=== PATIENT | female | born 1955 | race Caucasian/White ===

== ENCOUNTER 2023-03-16 14:55 | Outpatient (AMB) | payer MEDICARE, SELFPAY ==
[2023-03-16 14:59] VITALS: BP 132/70; PULSE 104; O2SAT 94; BMI 40.0
--- NOTE | 2023-03-16 14:59 | A.OFFVIS_ITS ---
Intake Vital Signs 03/16/23 14:59 Height 4 ft 11 in Weight 198 lb BMI 40.0 BP 132/70 Blood Pressure Location Lt brachial Position Sitting Pulse 104 H Pulse Source Pulse Oximeter Pulse Oximetry (%) 94 Oxygen Delivery Method Room Air Intake Visit Reasons: Fluid in L Lung Code And Test Clerk: Code And Test Clerk offered & declined Accompanied by: Self / Same As Patient Allergies carisoprodol [From Soma] Allergy (Severe, Verified 03/16/23 15:16) hives sulindac [From Clinoril] Allergy (Severe, Verified 03/16/23 15:16) Angioedema lisinopril Allergy (Severe, Uncoded 03/16/23 15:16) Angioedema Medication List - Last Reconciled 03/16/23 by Arcelia Lua LPN albuterol sulfate 90 mcg/actuation (ProAir HFA) 2 puffs inhalation Q4-6H PRN amlodipine 10 mg PO DAILY [id number] 160-9-4.8 mcg/actuation (Breztri Aerosphere) 2 inhalations inhalation BID diclofenac sodium 75 mg PO BID fluticasone propion-salmeterol 230-21 mcg/actuation 2 puffs inhalation BID gabapentin 300 mg PO .morning gabapentin 900 mg PO BEDTIME lorazepam 1 mg PO BEDTIME PRN sertraline 150 mg PO DAILY HPI Fluid in L Lung HPI Details Anita is a pleasant 67 year old female, current smoker with 56 pack year history, with underlying COPD, and asthma since childhood. She was referred progressively worsening dyspnea over the last few months and recent abnormal chest CT. Chest CT performed through [facility] lung cancer screening program and revealed small LLL pleural effusion with associated pleural thickening. Otherwise no concerning nodules. She reports wheezing with productive cough and yellow to whitish sputum. She was recently prescribed breztri for the past 6 weeks but has also continued her wixela. She reports checking her oxygen saturation and will occasionally decrease into the 70s with exertion. She also reports JENNIFER and compliant with CPAP therapy through [facility] sleep medicine. She reports sister with asthma. She denies any allergies. She denies any occupational exposures. [facility] Social History (Updated 03/16/23 @ 15:08 by Arcelia Lua LPN) Patient Tobacco Use Status: Current everyday Tobacco user Tobacco use type: Cigarette Cigarette Packs Per Day: 1 Years Smoked: 50 Smoked in Last 30 Days: Yes Review of Systems Const Denies chills, Denies excessive sweating, Denies fever(s), Denies headache(s) and Denies night sweats Eyes Denies dry eyes, Denies irritation and Denies itchy eyes ENT Reports Normal hearing present and Denies headache(s) Card Denies chest pain, Denies chest pain at rest, Denies chest pain with activity, Denies claudication, Denies orthopnea and Denies paroxysmal nocturnal dyspnea Resp Denies pain on inspiration, Denies pain with cough and Denies stridor Musc Denies myalgias Neuro Reports Normal hearing present and Denies headache(s) Endo Denies excessive sweating Wei/Lymph Denies lymphadenopathy Aller/Immun Denies itchy eyes and Denies seasonal rhinorrhea Physical Exam Vital Signs: Last Vital Signs Pulse 104 H 03/16/23 14:59 BP 132/70 03/16/23 14:59 Pulse Ox 94 03/16/23 14:59 Oxygen Delivery Method Room Air 03/16/23 14:59 BMI result Body Mass Index 40.0 Const General: cooperative, healthy appearing, comfortable, no acute distress, well developed and alert Nutritional Appearance: obese Orientation/consciousness: patient oriented x3 Limitations: no limitations HEENT Head: Yes normal to inspection, Yes normocephalic and Yes atraumatic Ears: hearing grossly normal bilaterally and external ears normal Eyes General: appearance normal, both eyes and all related structures Eyelids: Yes eyelids normal Sclerae: sclerae normal EOM: EOMs intact bilaterally Neck Neck: Yes normal visual inspection and Yes no lymphadenopathy Lymphatic: no lymphadenopathy noted Chest Chest palpation & inspection: normal inspection of the chest Resp Other: diminished lung sounds Effort & Inspection: normal respiratory effort, able to speak in complete sentences, no audible wheezes, no cough, no stridor, not tachypneic, no tripod positioning and no use of accessory muscles Cardio Jugular venous distension: no JVD Rate: regular rate Rhythm: regular rhythm Skin Other: warm, dry General skin exam: no rashes or lesions noted Neuro General: patient oriented x3 Cranial nerves: Yes Normal hearing present Cognition (Neuro): normal cognition Gait exam (Neuro): Normal gait present Extrem General: Yes normal to inspection, Yes capillary refill normal, Yes no clubbing, cyanosis or edema and Yes no pedal edema Psych Appearance: grossly normal and well kempt Speech and movement: Normal speech and movement present and Clear speech present Affect: normal affect Attitude: cooperative Thought process: Normal thought process present Thought content: Normal thought content present Insight: Good insight present (Psych) Judgement: Good judgement present (Psych) Office Procedures 6 Minute Walk Time:: 15:40 SPO2 % at rest: 94 Pulse at rest: 92 SPO2 % during excercise: 85 Pulse during excercise: 110 SPO2 % after excercise: 91 Pulse after excercise: 118 Distance in yards walked: 100 Gloria Score: 7 Performance Observations:: Patient walked on level ground with the assistance of a walker. After a short distance of approx 25 yards O2 saturation dropped to 85% pulse of 110. Stopped to rest, O2 applied at 1L via nasal cannula. After approx 1.5 minutes O2 saturation increased to 95% with pulse of 96. Finished the walk with O2 at 1L via nasal cannula maintaining O2 saturation of 91% or greater. Patient reports her legs get very tired and she gets short of breath with walking any distance. Patient would benefit from the use of supplemental O2. 92837 - 6 Minute Walk Assessment & Plan Assessment & Plan (1) COPD (chronic obstructive pulmonary disease): Code(s): J44.9 - Chronic obstructive pulmonary disease, unspecified (2) Pleural effusion: Code(s): J90 - Pleural effusion, not elsewhere classified Plan Anita's symptoms are likely related to underlying COPD. Will send for PFT to assess severity. Will send in azithromycin for bronchitic symptoms. Patient reports improvements with breztri however not financially feasible. Advised to continue Wixela and will add spiriva. 6MWT performed and patient does qualify for supplemental oxygen, however declines at this time. Discussed adverse effects of hypoxia. Reviewed chest CT report which revealed small left pleural effusion with associated pleural thickening. Will attempt to obtain images from [facility]. All questions were answered and patient is in agreement of plan. Will follow up to review response to inhaler and results. Orders: Orders AMB 6 minute walk 03/16/23 R06.09 - Other forms of dyspnea Medications: New tiotropium bromide (Spiriva with HandiHaler) puncture 1 cap using device; one dose = 2 inhalations 1 cap inhalation DAILY 30 caps 3RF Coding Level of Care Code New Pt Level 4 (00818) Diagnoses COPD (chronic obstructive pulmonary disease) J44.9 Pleural effusion J90 CPT Codes Coding ([id number])
--- NOTE | 2023-03-16 15:28 | MHC.OFFVIS ---
Intake Vital Signs 03/16/23 14:59 Height 4 ft 11 in Weight 198 lb BMI 40.0 BP 132/70 Blood Pressure Location Lt brachial Position Sitting Pulse 104 H Pulse Source Pulse Oximeter Pulse Oximetry (%) 94 Oxygen Delivery Method Room Air Intake Visit Reasons: Fluid in L Lung Allergies carisoprodol [From Soma] Allergy (Severe, Verified 03/16/23 15:16) hives sulindac [From Clinoril] Allergy (Severe, Verified 03/16/23 15:16) Angioedema lisinopril Allergy (Severe, Uncoded 03/16/23 15:16) Angioedema Medication List - Last Reconciled 03/16/23 by Arcelia Lua LPN albuterol sulfate 90 mcg/actuation (ProAir HFA) 2 puffs inhalation Q4-6H PRN amlodipine 10 mg PO DAILY [id number]-mqyidvxyva 160-9-4.8 mcg/actuation (Breztri Aerosphere) 2 inhalations inhalation BID diclofenac sodium 75 mg PO BID fluticasone propion-salmeterol 230-21 mcg/actuation 2 puffs inhalation BID gabapentin 300 mg PO .morning gabapentin 900 mg PO BEDTIME lorazepam 1 mg PO BEDTIME PRN sertraline 150 mg PO DAILY [facility] Social History (Updated 03/16/23 @ 15:08 by Arcelia Lua LPN) Patient Tobacco Use Status: Current everyday Tobacco user Tobacco use type: Cigarette Cigarette Packs Per Day: 1 Years Smoked: 50 Smoked in Last 30 Days: Yes Physical Exam Vital Signs: Last Vital Signs Pulse 104 H 03/16/23 14:59 BP 132/70 03/16/23 14:59 Pulse Ox 94 03/16/23 14:59 Oxygen Delivery Method Room Air 03/16/23 14:59 BMI result Body Mass Index 40.0 Office Procedures 6 Minute Walk Time:: 15:40 SPO2 % at rest: 94 Pulse at rest: 92 SPO2 % during excercise: 85 Pulse during excercise: 110 SPO2 % after excercise: 91 Pulse after excercise: 118 Distance in yards walked: 100 Gloria Score: 7 Performance Observations:: Patient walked on level ground with the assistance of a walker. After a short distance of approx 25 yards O2 saturation dropped to 85% pulse of 110. Stopped to rest, O2 applied at 1L via nasal cannula. After approx 1.5 minutes O2 saturation increased to 95% with pulse of 96. Finished the walk with O2 at 1L via nasal cannula maintaining O2 saturation of 91% or greater. Patient reports her legs get very tired and she gets short of breath with walking any distance. Patient would benefit from the use of supplemental O2. 79104 - 6 Minute Walk Assessment & Plan Assessment & Plan Orders: Orders AMB 6 minute walk Today R06.09 - Other forms of dyspnea Coding CPT Codes Coding ([id number])
[2023-03-16 16:02] VITALS: PULSE 92; O2SAT 94
== END 2023-03-16 16:05 | disposition home or self-care (01) ==
PROVIDERS: PCP Internal Medicine; Visit Provider Nurse Practitioner Family
DX: J44.9 Chronic obstructive pulmonary disease, unspecified (principal)
CPT/HCPCS: 94618; 99204

== ENCOUNTER → 2023-03-16 14:55 | Outpatient (BNVA) | payer MEDICARE, SELFPAY | PROVIDERS: PCP Internal Medicine; Visit Provider Nurse Practitioner Family | DX: J44.9 Chronic obstructive pulmonary disease, unspecified (principal); J90 Pleural effusion, not elsewhere classified | CPT/HCPCS: 94618; 99202 ==

== ENCOUNTER 2023-04-23 | Outpatient (REF) | payer MEDICARE, SELFPAY ==
--- NOTE | 2023-04-23 10:33 | PFT_ITS ---
Flows: FEV1: 73 % of predicted at 1.37 L FVC: 83 % of predicted at 1.97 L FEV1/FVC: 69 % Bronchodilator response: Absent Volumes: No lung volume measurements available secondary to a technical issue. Diffusion capacity: Moderately decreased. Impression: Moderate obstructive ventilatory defect with no bronchodilator response, spirometry suggests underlying restrictive ventilatory defect. No lung volume measurements available secondary to a technical issue. Decreased diffusion capacity suggests emphysema. MTDD
[2023-04-23 11:30] VITALS: PULSE 95; RESP 16; O2SAT 97
== END 2023-04-23 00:01 | disposition home or self-care (01) ==
LOC: HO.RESP
PROVIDERS: Visit Provider Nurse Practitioner Family
DX: J44.9 Chronic obstructive pulmonary disease, unspecified (principal)
CPT/HCPCS: 94010; 94640; 94727; 94729

== ENCOUNTER → 2023-04-23 10:33 | Outpatient (BNV) | payer MEDICARE, SELFPAY | PROVIDERS: Visit Provider Internal Medicine Pulmonary Disease | DX: J44.9 Chronic obstructive pulmonary disease, unspecified (principal) | CPT/HCPCS: 94060; 94729 ==

== ENCOUNTER 2023-04-26 09:52 | Outpatient (AMB) | payer MEDICARE, SELFPAY ==
--- NOTE | 2023-04-26 09:54 | A.OFFVIS_ITS ---
Intake Vital Signs 04/26/23 09:55 Height 4 ft 11 in BP 136/72 Blood Pressure Location Rt brachial Position Sitting Pulse 94 Pulse Source Pulse Oximeter Pulse Oximetry (%) 93 Oxygen Delivery Method Room Air Intake Visit Reasons: PFT results Medical Affairs Manager Required: No On Site Services Specialist: On Site Services Specialist offered & declined Accompanied by: Self / Same As Patient Allergies carisoprodol [From Soma] Allergy (Severe, Verified 04/26/23 10:00) hives sulindac [From Clinoril] Allergy (Severe, Verified 04/26/23 10:00) Angioedema lisinopril Allergy (Severe, Uncoded 04/26/23 10:00) Angioedema Medication List - Last Reconciled 04/26/23 by Arcelia Lua LPN albuterol sulfate 90 mcg/actuation (ProAir HFA) 2 puffs inhalation Q4-6H PRN amlodipine 10 mg PO DAILY diclofenac sodium 75 mg PO BID fluticasone propion-salmeterol 230-21 mcg/actuation 2 puffs inhalation BID gabapentin 300 mg PO .morning gabapentin 900 mg PO BEDTIME lorazepam 1 mg PO BEDTIME PRN losartan 25 mg PO DAILY sertraline 150 mg PO DAILY tiotropium bromide (Spiriva with HandiHaler) 1 cap inhalation DAILY HPI PFT results HPI Details Anita is a pleasant 67 year old female, current smoker with 56 pack year history, with underlying COPD, and asthma since childhood. She was referred progressively worsening dyspnea over the last few months and recent abnormal chest CT. Chest CT performed through [facility] lung cancer screening program and revealed small LLL pleural effusion with associated pleural thickening. Otherwise no concerning nodules. She was sent for CXR to assess for resolution but stable findings. Denies any cardiac evaluation or prior echo. At the last visit, she was started on spiriva and wixela and given a zpak for productive cough with yellow sputum. She reports significant improvements in cough, now with clear sputum. She continues to reports wheezing and dyspnea, requiring albuterol frequently. At this time denies BLE or orthopnea. [facility] Social History (Updated 04/26/23 @ 10:03 by Arcelia Lua LPN) Patient Tobacco Use Status: Current everyday Tobacco user Tobacco use type: Cigarette Cigarette Packs Per Day: 1 Years Smoked: 50 Review of Systems Const Denies chills, Denies excessive sweating, Denies fever(s), Denies headache(s) and Denies night sweats Eyes Denies dry eyes, Denies irritation and Denies itchy eyes ENT Reports Normal hearing present and Denies headache(s) Card Denies chest pain, Denies chest pain at rest, Denies chest pain with activity, Denies claudication, Denies orthopnea and Denies paroxysmal nocturnal dyspnea Resp Denies pain on inspiration, Denies pain with cough and Denies stridor Musc Denies myalgias Neuro Reports Normal hearing present and Denies headache(s) Endo Denies excessive sweating Wei/Lymph Denies lymphadenopathy Aller/Immun Denies itchy eyes and Denies seasonal rhinorrhea Physical Exam Vital Signs: Last Vital Signs Pulse 94 04/26/23 09:55 BP 136/72 04/26/23 09:55 Pulse Ox 93 04/26/23 09:55 Oxygen Delivery Method Room Air 04/26/23 09:55 Const General: cooperative, healthy appearing, comfortable, no acute distress, well developed and alert Nutritional Appearance: obese Orientation/consciousness: patient oriented x3 Limitations: no limitations HEENT Head: Yes normal to inspection, Yes normocephalic and Yes atraumatic Ears: hearing grossly normal bilaterally and external ears normal Eyes General: appearance normal, both eyes and all related structures Eyelids: Yes eyelids normal Sclerae: sclerae normal EOM: EOMs intact bilaterally Neck Neck: Yes normal visual inspection and Yes no lymphadenopathy Lymphatic: no lymphadenopathy noted Chest Chest palpation & inspection: normal inspection of the chest Resp Other: diminished lung sounds Effort & Inspection: normal respiratory effort, able to speak in complete sentences, no audible wheezes, no cough, no stridor, not tachypneic, no tripod positioning and no use of accessory muscles Cardio Jugular venous distension: no JVD Rate: regular rate Rhythm: regular rhythm Skin Other: warm, dry General skin exam: no rashes or lesions noted Neuro General: patient oriented x3 Cranial nerves: Yes Normal hearing present Cognition (Neuro): normal cognition Gait exam (Neuro): Normal gait present Extrem General: Yes normal to inspection, Yes capillary refill normal, Yes no clubbing, cyanosis or edema and Yes no pedal edema Psych Appearance: grossly normal and well kempt Speech and movement: Normal speech and movement present and Clear speech present Affect: normal affect Attitude: cooperative Thought process: Normal thought process present Thought content: Normal thought content present Insight: Good insight present (Psych) Judgement: Good judgement present (Psych) Office Procedures Nebulizer Treatment Nebulizer Treatment 95030-Kiaangjke/MDI RX initial, or Nebulizer Subsequent Treatment Office Meds ipratropium 0.5 mg-albuterol 3 mg (2.5 mg base)/3 mL nebulization soln Performing Provider: Irene Palafox NP Performing Location: [facility] Administered by: Arcelia Lua LPN on 04/26/23 11:00 Dose Route Admin Location Dispensed Lot Number Expiration Date NDC Academic Support Coordinator 3 mL inhalation 3 mL [id number] 11/20/24 77384-349-64 [employer] Assessment & Plan Assessment & Plan (1) COPD (chronic obstructive pulmonary disease): Code(s): J44.9 - Chronic obstructive pulmonary disease, unspecified (2) Pleural effusion: Code(s): J90 - Pleural effusion, not elsewhere classified (3) AGUILAR (dyspnea on exertion): Code(s): R06.09 - Other forms of dyspnea Plan Anita reports improvements in cough after zpak however continues to use albuterol frequently due to dyspnea and wheezing. Duoneb given in office and patient reported symptomatic improvement. Nebulizer for home use given in office today. On exam patient with faint inspiratory bibasilar crackles. Will send for echo to assess for cardiac contribution. May trial on lasix if dyspnea worsens and reports associated orthopnea or BLE. At the last visit, 6MWT performed and patient does qualify for supplemental oxygen, however she continues to decline. Prior CT chest revealed pleural effusion and minimal change on CXR. Will discuss reevaluation with imaging after echo. We also discussed pulmonary rehab which patient was interested in, but would like to hold off on a referral at this time . All questions were answered and patient is in agreement of plan. Will follow up to review results or sooner if needed. Orders: Orders AMB Nebulizer Treatment 04/26/23 J44.9 - Chronic obstructive pulmonary disease, unspecified CA echo transthoracic complete Today J90 - Pleural effusion, not elsewhere classified, R06.09 - Other forms of dyspnea Medications: New ipratropium-albuterol 0.5 mg-3 mg(2.5 mg base)/3 mL 3 mL inhalation BID PRN 180 mL 2RF wheezing Coding Level of Care Code Est Pt Level 4 (16953) Diagnoses COPD (chronic obstructive pulmonary disease) J44.9 Pleural effusion J90 AGUILAR (dyspnea on exertion) R06.09 CPT Codes Nebulizer Treatment - Nebulizer Treatment, initial or subsequent: 84966- Nebulizer/MDI RX initial, or Nebulizer Subsequent Treatment ([id number])
[2023-04-26 09:55] VITALS: BP 136/72; PULSE 94; O2SAT 93
== END 2023-04-26 10:44 | disposition home or self-care (01) ==
PROVIDERS: PCP Internal Medicine; Visit Provider Nurse Practitioner Family
DX: J44.9 Chronic obstructive pulmonary disease, unspecified (principal); J90 Pleural effusion, not elsewhere classified; R06.09 Other forms of dyspnea
CPT/HCPCS: 99214

== ENCOUNTER → 2023-04-26 09:52 | Outpatient (BNVA) | payer MEDICARE, SELFPAY | PROVIDERS: PCP Internal Medicine; Visit Provider Nurse Practitioner Family | DX: J44.9 Chronic obstructive pulmonary disease, unspecified (principal); J90 Pleural effusion, not elsewhere classified; R06.09 Other forms of dyspnea | CPT/HCPCS: 94640; 99212 ==

== ENCOUNTER → 2023-05-24 10:03 | Outpatient (REF) | payer MEDICARE, SELFPAY ==
--- NOTE | 2023-05-24 10:06 | CA_ITS ---
Transthoracic Echocardiogram Patient (Last, First, Middle): Anita Limon M Gender: Female Date of : 1955 Age: 67 Procedure Date: 05/24/2023 Procedure Type: Transthoracic Echocardiogram Location: OP Height: 152.4 cm Weight: 90.72 kg BSA: 1.87 m2 Heart Rate: bpm BP: 140 / 70 mmHg Kitchen Manager: ALISE Referring MD: Irene Palafox LEGAL ADVISER [employer] Pressing Machine Operator: Eduar Griffith MD Symptoms: R06.09 - Other forms of dyspnea Study Quality: Fair ECG Rhythm: Sinus Conclusions: - 1. Normal LV ejection fraction of 60 65% with mild LVH with impaired relaxation filling pattern 2. Mildly dilated left atrium 3. Cardiac valvular Dopplers within normal limits 4. Upper limits of normal ascending aortic size 5. No gross pericardial effusion Findings Left Ventricle Normal left ventricular size and systolic function. There is mildly increased left ventricular wall thickness. The visually estimated ejection fraction is between 60-65%. Spectral Doppler is indicative of an impaired relaxation filling pattern. E/E prime ratio is between 8 and 15 consistent with indeterminate filling pressures. Peak GLS is -15.5%, which is mildly reduced. Right Ventricle The right ventricle was not well visualized. Atria The left atrium is mildly dilated. There is lipomatous hypertrophy of the interatrial septum. There is no evidence of interatrial shunt. The right atrium was not well visualized. Aortic Valve The aortic valve was not well visualized. There is no aortic valve stenosis. There is no aortic valve regurgitation. Mitral Valve There is mild anterior and posterior mitral leaflet thickening. There is mild mitral annular calcification. There is trace mitral valve regurgitation. There is no mitral valve stenosis. Pulmonic Valve The pulmonic valve was not well visualized. Tricuspid Valve The tricuspid valve was not well visualized. Tricuspid regurgitation envelope is inadequate for calculation of right ventricular systolic pressure. Normal right atrial pressure. Great Vessels The pulmonary artery was not well visualized. Venous The inferior vena cava is normal in size and collapses greater than 50% with inspiration. Pericardium/Pleural There is no evidence of pericardial effusion. Prior Study Comparison No prior study available for comparison. Measurements 2D Linear Measurements IVSd: 1.28 0.6-0.9/0.6-1.0 cm LVIDd: 4.71 3.9-5.3/4.2-5.9 cm LVIDd Index: 2.52 2.4-3.2/2.2-3.1 cm/m2 LVIDs: 3.49 2.0-3.6 cm LVPWd: 1.15 0.7-1.1 cm LA Diam: 5.00 2.7-3.8/3.0-4.0 cm LAIDs Index: 2.67 1.5-2.3 cm/m2 LV Mass: 269.89 67-162/88-224 g LV Mass Index: 144.32 43-95/49-115 g/m2 LVOT Diam: 2.00 3.0+(-)1.3 cm 2D Systolic Function EF 4C: 61.70 >55% EF 2C: 65.00 >55% EF BiP: 62.90 >55% Mitral Valve MV Pk E: 1.12 MV PK A: 1.20 MV Decel Time: 217.00 E/A: 0.90 E'Lateral: 9.36 E'Medial: 7.40 E/E' Med: 15.10 E/E' Lat: 12.00 PHT: 63.00 MVA PHT: 3.49 Decel [place]: 5.15 Aortic Valve AoV Pk Mitchell: 1.67 AoV Mn Mitchell: 1.17 AoV VTI: 0.32 AoV Pk Grad: 11.00 Aov Mn Grad: 6.00 JONY Cont.VTI: 2.28 LVOT LVOT Pk Mitchell: 1.29 LVOT Mn Mitchell: 0.81 LVOT VTI: 0.24 LVOT Pk Grad: 7.00 LVOT Mn Grad: 3.00 LVOT Diam: 2.00 LVOT Area: 3.14 Diastolic Function MV Pk E: 1.12 MV Pk A: 1.20 E/A: 0.90 E'Medial: 7.40 E/E' Med: 15.10 E' Laterial: 9.36 E/E' Lat: 12.00 Right Ventricle TAPSE (mm): 20.30 TVS' Mitchell: 13.80 Tricuspid Valve RA Press: 3.00 Great Vessels Aorta Sinus of Valsalva: 3.02 2.0-3.[address] [place]: 2.96 1.7-3.4 cm Ao Asc: 3.50 2.1-3.4 cm Updated in Other Vendor System with Status of Final Eduar Griffith MD electronically signed on 05/25/2023 3:17:08 PM with status of Final
== END ==
LOC: HO.CARD 10:03
PROVIDERS: PCP Internal Medicine; Visit Provider Nurse Practitioner Family
DX: R06.09 Other forms of dyspnea (principal); J90 Pleural effusion, not elsewhere classified
CPT/HCPCS: 93306; 93356

== ENCOUNTER → 2023-05-24 10:06 | Outpatient (BNV) | payer MEDICARE, SELFPAY | PROVIDERS: PCP Internal Medicine; Visit Provider Internal Medicine Cardiovascular Disease | DX: R06.09 Other forms of dyspnea (principal) | CPT/HCPCS: 93306; 93356 ==

== ENCOUNTER 2023-06-15 10:41 | Outpatient (AMB) | payer MEDICARE, SELFPAY ==
--- NOTE | 2023-06-15 10:56 | MHC.OFFVIS ---
Vital Signs 06/15/23 11:01 Height 4 ft 11 in Weight 204 lb 8 oz BMI 41.3 BP 150/78 H Blood Pressure Location Rt brachial Position Sitting Pulse 104 H Pulse Source Pulse Oximeter Pulse Oximetry (%) 91 L Oxygen Delivery Method Room Air Intake Visit Reasons: Shortness of breath Allergies carisoprodol [From Soma] Allergy (Severe, Verified 06/15/23 11:04) hives sulindac [From Clinoril] Allergy (Severe, Verified 06/15/23 11:04) Angioedema lisinopril Allergy (Severe, Uncoded 06/15/23 11:04) Angioedema HPI HPI Shortness of breath: Details: Anita is a pleasant 67 year old female, current smoker with 56 pack year history, with underlying COPD, and asthma since childhood. At the last visit, she was started on spiriva and wixela, as well as duoneb BID. She was previously advised to use supplemental oxygen as 6MWT performed and patient required 1-2L. She is willing to start supplemental oxygen as she feels her symptoms are worsening. Over the last month she feels increased symptoms of wheezing and dyspnea, requiring albuterol frequently. She also reports chest congestion with productive cough and yellow sputum. Of note, since starting spiriva, she has noticed an increase in hoarseness. ON LICENSE OF [facility] Social History (Updated 06/15/23 @ 11:04 by Vannesa Suazo [facility]) Patient Tobacco Use Status: Current everyday Tobacco user Tobacco use type: Cigarette Cigarettes Per Day: 15 Years Smoked: 50 Review of Systems Const Denies chills, Denies excessive sweating, Denies fever(s) and Denies night sweats Eyes Denies dry eyes, Denies irritation and Denies itchy eyes ENT Reports Normal hearing present Card Denies chest pain, Denies chest pain at rest, Denies chest pain with activity, Denies claudication, Reports dyspnea on exertion, Denies orthopnea and Denies paroxysmal nocturnal dyspnea Resp Reports chest congestion, Reports cough, Denies pain on inspiration, Denies pain with cough, Reports dyspnea on exertion, Denies stridor and Reports wheezing Musc Denies myalgias Neuro Reports Normal hearing present Endo Denies excessive sweating Wei/Lymph Denies lymphadenopathy Aller/Immun Denies itchy eyes, Denies seasonal rhinorrhea and Reports wheezing Physical Exam Vital Signs: Last Vital Signs Pulse 104 H 06/15/23 11:01 BP 150/78 H 06/15/23 11:01 Pulse Ox 91 L 06/15/23 11:01 Oxygen Delivery Method Room Air 06/15/23 11:01 BMI result Body Mass Index 41.3 Const General: cooperative, healthy appearing, comfortable, no acute distress, well developed and alert Nutritional Appearance: obese Orientation/consciousness: patient oriented x3 Limitations: no limitations HEENT Head: Yes normal to inspection, Yes normocephalic and Yes atraumatic Ears: hearing grossly normal bilaterally and external ears normal Eyes General: appearance normal, both eyes and all related structures Eyelids: Yes eyelids normal Sclerae: sclerae normal EOM: EOMs intact bilaterally Neck Neck: Yes normal visual inspection and Yes no lymphadenopathy Lymphatic: no lymphadenopathy noted Chest Chest palpation & inspection: normal inspection of the chest Resp Other: diminished lung sounds Effort & Inspection: normal respiratory effort, able to speak in complete sentences, Actively coughing Quality: productive, no stridor, not tachypneic, no tripod positioning and no use of accessory muscles Auscultation: rhonchi, wheezes expiratory wheezes and throughout and diminished lung sounds Cardio Jugular venous distension: no JVD Rate: regular rate Rhythm: regular rhythm Skin Other: warm, dry General skin exam: no rashes or lesions noted Neuro General: patient oriented x3 Cranial nerves: Yes Normal hearing present Cognition (Neuro): normal cognition Gait exam (Neuro): Normal gait present Extrem General: Yes normal to inspection, Yes capillary refill normal, Yes no clubbing, cyanosis or edema and Yes no pedal edema Psych Appearance: grossly normal and well kempt Speech and movement: Normal speech and movement present and Clear speech present Affect: normal affect Attitude: cooperative Thought process: Normal thought process present Thought content: Normal thought content present Insight: Good insight present (Psych) Judgement: Good judgement present (Psych) Assessment & Plan Assessment & Plan (1) COPD (chronic obstructive pulmonary disease): Code(s): J44.9 - Chronic obstructive pulmonary disease, unspecified Category: Medical (2) Pleural effusion: Code(s): J90 - Pleural effusion, not elsewhere classified Category: Medical (3) AGUILAR (dyspnea on exertion): Code(s): R06.09 - Other forms of dyspnea Category: Medical Plan Patient with worsening bronchitic symptoms. Will treat with prednisone and doxycyline. Once acute exacerbation resolves, will reconsider trialing lasix. Patient is willing to trial supplemental oxygen with exertion. From walking to the waiting room to the exam room on room air, patient's oxygen saturation decreased to 85%, recovering after 2L of supplemental oxygen to 93%. Will send prescription to [facility] for 2L. Will have close follow up to revaluate in 4 weeks or sooner if needed. Patient aware if symptoms do not improve in the next few days, to call office for CXR. Will also discontonue spiriva given hoarseness and advised to use duoneb 2-3 times per day as needed. All questions were answered and patient is in agreement of plan. Medications: New doxycycline hyclate 100 mg PO BID 14 caps 0RF fluconazole If symptoms develop take one dose, if symptoms persist take second dose after 3 days 150 mg PO Q3D 2 tabs 0RF 2 doses prednisone 40 mg (2 x 20 mg) PO DAILY 10 tabs 0RF fluticasone propion-salmeterol 230-21 mcg/actuation 2 puffs inhalation BID 12 grams 3RF Discontinued tiotropium bromide (Spiriva with HandiHaler) puncture 1 cap using device; one dose = 2 inhalations Discontinued Reason: Patient Completed Course 1 cap inhalation DAILY 30 caps 3RF Coding Level of Care Code Est Pt Level 4 (21441) Diagnoses COPD (chronic obstructive pulmonary disease) J44.9 Pleural effusion J90 AGUILAR (dyspnea on exertion) R06.09
[2023-06-15 11:01] VITALS: BP 150/78; PULSE 104; O2SAT 91; BMI 41.3
== END 2023-06-15 11:48 | disposition home or self-care (01) ==
PROVIDERS: PCP Internal Medicine; Visit Provider Nurse Practitioner Family
DX: J44.9 Chronic obstructive pulmonary disease, unspecified (principal); J90 Pleural effusion, not elsewhere classified; R06.09 Other forms of dyspnea
CPT/HCPCS: 99214

== ENCOUNTER → 2023-06-15 10:41 | Outpatient (BNVA) | payer MEDICARE, SELFPAY | PROVIDERS: PCP Internal Medicine; Visit Provider Nurse Practitioner Family | DX: J44.9 Chronic obstructive pulmonary disease, unspecified (principal); J90 Pleural effusion, not elsewhere classified; R06.09 Other forms of dyspnea | CPT/HCPCS: 99212 ==

== ENCOUNTER 2023-07-13 08:34 | Outpatient (AMB) | payer MEDICARE, SELFPAY ==
--- NOTE | 2023-07-13 08:35 | MHC.OFFVIS ---
Vital Signs 07/13/23 08:36 Height 4 ft 11 in Weight 199 lb 4 oz BMI 40.2 BP 142/70 H Blood Pressure Location Rt brachial Position Sitting Pulse 90 Pulse Source Pulse Oximeter Pulse Oximetry (%) 93 Oxygen Delivery Method Room Air Intake Visit Reasons: shortness of breath Allergies carisoprodol [From Soma] Allergy (Severe, Verified 07/13/23 08:39) hives sulindac [From Clinoril] Allergy (Severe, Verified 07/13/23 08:39) Angioedema lisinopril Allergy (Severe, Uncoded 07/13/23 08:39) Angioedema HPI HPI shortness of breath: Details: Anita is a pleasant 67 year old female, current smoker with 56 pack year history, with underlying COPD, and asthma since childhood. At the last visit, she reported worsening bronchitic symptoms, treated with doxycyline and prednisone, with resolution of symptoms. She reports moderate control of symptoms with advair and duoneb, with intermittent wheezing and productive cough with clear sputum. She feels as though dyspnea on exertion is back to baseline. She has been using supplemental oxygen PRN maintaining oxygen saturation at 92-93%. FOR[facility]LY [facility] Social History Patient Tobacco Use Status: Current everyday Tobacco user Tobacco use type: Cigarette Cigarettes Per Day: 15 Years Smoked: 50 Review of Systems Const Denies chills, Denies excessive sweating, Denies fever(s) and Denies night sweats Eyes Denies dry eyes, Denies irritation and Denies itchy eyes ENT Reports Normal hearing present Card Denies chest pain, Denies chest pain at rest, Denies chest pain with activity, Denies claudication, Denies orthopnea and Denies paroxysmal nocturnal dyspnea Resp Denies pain on inspiration, Denies pain with cough and Denies stridor Musc Denies myalgias Neuro Reports Normal hearing present Endo Denies excessive sweating Wei/Lymph Denies lymphadenopathy Aller/Immun Denies itchy eyes and Denies seasonal rhinorrhea Physical Exam Vital Signs: BMI result Body Mass Index 40.2 Const General: cooperative, healthy appearing, comfortable, no acute distress, well developed and alert Nutritional Appearance: obese Orientation/consciousness: patient oriented x3 Limitations: no limitations HEENT Head: Yes normal to inspection, Yes normocephalic and Yes atraumatic Ears: hearing grossly normal bilaterally and external ears normal Eyes General: appearance normal, both eyes and all related structures Eyelids: Yes eyelids normal Sclerae: sclerae normal EOM: EOMs intact bilaterally Neck Neck: Yes normal visual inspection and Yes no lymphadenopathy Lymphatic: no lymphadenopathy noted Chest Chest palpation & inspection: normal inspection of the chest Resp Effort & Inspection: normal respiratory effort, able to speak in complete sentences, no stridor, not tachypneic, no tripod positioning and no use of accessory muscles Auscultation: diminished lung sounds Cardio Jugular venous distension: no JVD Rate: regular rate Rhythm: regular rhythm Skin Other: warm, dry General skin exam: no rashes or lesions noted Neuro General: patient oriented x3 Cranial nerves: Yes Normal hearing present Cognition (Neuro): normal cognition Gait exam (Neuro): Normal gait present Extrem General: Yes normal to inspection, Yes capillary refill normal, Yes no clubbing, cyanosis or edema and Yes no pedal edema Psych Appearance: grossly normal and well kempt Speech and movement: Normal speech and movement present and Clear speech present Affect: normal affect Attitude: cooperative Thought process: Normal thought process present Thought content: Normal thought content present Insight: Good insight present (Psych) Judgement: Good judgement present (Psych) Assessment & Plan Assessment & Plan (1) COPD (chronic obstructive pulmonary disease): Code(s): J44.9 - Chronic obstructive pulmonary disease, unspecified Category: Medical (2) Pleural effusion: Code(s): J90 - Pleural effusion, not elsewhere classified Category: Medical (3) AGUILAR (dyspnea on exertion): Code(s): R06.09 - Other forms of dyspnea Category: Medical Plan Anita reports resolution of symptoms with prior prescrioption of doxycyline and prednisone. Today she reports good control of respiratory symptoms on current regimen. Advised to continue current regimen of advair and duoneb BID. She is aware to use supplemental oxygen with exertion and maintain 92-94%. Of note, she did report PCP is evaluating patient for GERD vs PND contributing to hoarseness. Discussed restarting spiriva, however patient would like to continue current regimen. All questions were answered and patient is in agreement of plan. Will follow up in 3 months or sooner if needed. Medications: Refilled doxycycline hyclate 100 mg PO BID 14 caps 0RF Coding Level of Care Code Est Pt Level 4 (46799) Diagnoses COPD (chronic obstructive pulmonary disease) J44.9 Pleural effusion J90 AGUILAR (dyspnea on exertion) R06.09
[2023-07-13 08:36] VITALS: BP 142/70; PULSE 90; O2SAT 93; BMI 40.2
== END 2023-07-13 09:05 | disposition home or self-care (01) ==
PROVIDERS: PCP Internal Medicine; Visit Provider Nurse Practitioner Family
DX: J44.9 Chronic obstructive pulmonary disease, unspecified (principal); J90 Pleural effusion, not elsewhere classified; R06.09 Other forms of dyspnea
CPT/HCPCS: 99214

== ENCOUNTER → 2023-07-13 08:34 | Outpatient (BNVA) | payer MEDICARE, SELFPAY | PROVIDERS: PCP Internal Medicine; Visit Provider Nurse Practitioner Family | DX: R06.09 Other forms of dyspnea (principal); J44.9 Chronic obstructive pulmonary disease, unspecified; J90 Pleural effusion, not elsewhere classified | CPT/HCPCS: 99212 ==

== ENCOUNTER 2023-10-26 09:48 | Outpatient (AMB) | payer MEDICARE, SELFPAY ==
[2023-10-26 09:54] VITALS: BP 128/60; PULSE 96; O2SAT 94; BMI 40.0
--- NOTE | 2023-10-26 09:54 | A.OFFVIS_ITS ---
Vital Signs 10/26/23 09:54 Height 4 ft 11 in Weight 198 lb BMI 40.0 BP 128/60 Blood Pressure Location Rt brachial Position Sitting Pulse 96 Pulse Source Pulse Oximeter Pulse Oximetry (%) 94 Oxygen Delivery Method Room Air Intake Visit Reasons: shortness of breath Allergies carisoprodol [From Soma] Allergy (Severe, Verified 10/26/23 10:00) hives sulindac [From Clinoril] Allergy (Severe, Verified 10/26/23 10:00) Angioedema lisinopril Allergy (Severe, Uncoded 10/26/23 10:00) Angioedema HPI HPI shortness of breath: Details: Anita is a pleasant 67 year old female, current smoker with 56 pack year history, with underlying COPD, and asthma since childhood. At the last visit, she reported worsening bronchitic symptoms, treated with doxycyline and prednisone, with resolution of symptoms. She reports moderate control of symptoms with advair and duoneb, with intermittent wheezing and productive cough with clear sputum. She feels as though dyspnea on exertion is back to baseline. She has been using supplemental oxygen PRN maintaining oxygen saturation at 92- 93%. She was recently evaluate by ENT, who noted a growth on the vocal cord which could be underlying cause of hoarseness. She has an appointment next week to discuss further interventions. She denies any visits to urgent care or hospitalization since last visit. FORMERLY [facility] Social History Patient Tobacco Use Status: Current everyday Tobacco user Tobacco use type: Cigarette Cigarettes Per Day: 15 Years Smoked: 50 Review of Systems Const Denies chills, Denies excessive sweating, Denies fever(s), Denies headache(s) and Denies night sweats Eyes Denies dry eyes, Denies irritation and Denies itchy eyes ENT Reports Normal hearing present, Denies headache(s), Denies nasal congestion, Denies nasal discharge, Denies post nasal drip and Denies sore throat Card Denies chest pain, Denies chest pain at rest, Denies chest pain with activity, Denies claudication, Denies leg edema, Denies orthopnea and Denies paroxysmal nocturnal dyspnea Resp Denies chest congestion, Denies excessive phlegm production, Denies pain on inspiration, Denies pain with cough and Denies stridor Musc Denies myalgias Neuro Reports Normal hearing present and Denies headache(s) Endo Denies excessive sweating Wei/Lymph Denies lymphadenopathy Aller/Immun Denies itchy eyes and Denies seasonal rhinorrhea Physical Exam Vital Signs: Last Vital Signs Pulse 96 10/26/23 09:54 BP 128/60 10/26/23 09:54 Pulse Ox 94 10/26/23 09:54 Oxygen Delivery Method Room Air 10/26/23 09:54 BMI result Body Mass Index 40.0 Const General: cooperative, healthy appearing, comfortable, no acute distress, well developed and alert Nutritional Appearance: obese Orientation/consciousness: patient oriented x3 HEENT Head: Yes normal to inspection, Yes normocephalic and Yes atraumatic Ears: hearing grossly normal bilaterally and external ears normal Eyes General: appearance normal, both eyes and all related structures Eyelids: Yes eyelids normal Sclerae: sclerae normal EOM: EOMs intact bilaterally Neck Neck: Yes normal visual inspection and Yes no lymphadenopathy Lymphatic: no lymphadenopathy noted Chest Chest palpation & inspection: normal inspection of the chest Resp Effort & Inspection: normal respiratory effort, able to speak in complete sentences, no audible wheezes, no cough, no stridor, not tachypneic, no tripod positioning and no use of accessory muscles Auscultation: diminished lung sounds Cardio Jugular venous distension: no JVD Rate: regular rate Rhythm: regular rhythm Skin Other: warm, dry General skin exam: no rashes or lesions noted Neuro General: patient oriented x3 Cranial nerves: Yes Normal hearing present Cognition (Neuro): normal cognition Gait exam (Neuro): Normal gait present Extrem Other: Currently wearing soft cast/stabilizer of left foot for fracture s/p fall x5 weeks ago under the care of [facility] Psych Appearance: grossly normal and well kempt Speech and movement: Normal speech and movement present and Clear speech present Affect: normal affect Attitude: cooperative Thought process: Normal thought process present Thought content: Normal thought content present Insight: Good insight present (Psych) Judgement: Good judgement present (Psych) Assessment & Plan Assessment & Plan (1) COPD (chronic obstructive pulmonary disease): Code(s): J44.9 - Chronic obstructive pulmonary disease, unspecified Category: Medical (2) Pleural effusion: Code(s): J90 - Pleural effusion, not elsewhere classified Category: Medical (3) AGUILAR (dyspnea on exertion): Code(s): R06.09 - Other forms of dyspnea Category: Medical Plan Anita reports suboptimal control with Advair, will add Spiriva to regimen. She is aware to use supplemental oxygen with exertion and maintain 92-94%. Encourage patient to monitor oxygen saturation more frequently. All questions were answered and patient is in agreement of plan. Will follow up in 6-8 weeks or sooner if needed. Medications: New tiotropium bromide (Spiriva with HandiHaler) puncture 1 cap using device; one dose = 2 inhalations 1 cap inhalation DAILY 60 inhalations 3RF Refilled ipratropium-albuterol 0.5 mg-3 mg(2.5 mg base)/3 mL 3 mL PO BID PRN 180 mL 4RF shortness of breath or wheezing J44.9 - Chronic obstructive pulmonary disease, unspecified fluticasone propion-salmeterol 230-21 mcg/actuation 2 puffs inhalation BID 12 grams 3RF Discontinued doxycycline hyclate Discontinued Reason: Patient Completed Course 100 mg PO BID 14 caps 0RF Coding Level of Care Code Est Pt Level 4 (90617) Diagnoses COPD (chronic obstructive pulmonary disease) J44.9 Pleural effusion J90 AGUILAR (dyspnea on exertion) R06.09
== END 2023-10-26 10:43 | disposition home or self-care (01) ==
PROVIDERS: PCP Internal Medicine; Visit Provider Nurse Practitioner Family
DX: J44.9 Chronic obstructive pulmonary disease, unspecified (principal); J90 Pleural effusion, not elsewhere classified; R06.09 Other forms of dyspnea
CPT/HCPCS: 99214

== ENCOUNTER → 2023-10-26 09:48 | Outpatient (BNVA) | payer MEDICARE, SELFPAY | PROVIDERS: PCP Internal Medicine; Visit Provider Nurse Practitioner Family | DX: J44.9 Chronic obstructive pulmonary disease, unspecified (principal); J90 Pleural effusion, not elsewhere classified; R06.09 Other forms of dyspnea | CPT/HCPCS: 99212 ==